=== PATIENT | female | born 1955 | race Caucasian/White ===

== ENCOUNTER 2023-01-11 11:05 | Outpatient (AMB) | payer OTHER, SELFPAY ==
--- NOTE | 2023-01-11 11:29 | A.OFFVIS_ITS ---
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: No Buck Presser: Buck Presser Present Accompanied by: Daughter Allergies shellfish derived Allergy (Mild, Verified 01/11/23 11:40) Swelling tramadol Allergy (Mild, Verified 01/11/23 11:40) Swelling Medication List - Last Reconciled 01/11/23 by Víctor Nunez MD ascorbic acid (vitamin C) (Vitamin C) 500 mg PO BID bupropion HCl 300 mg PO DAILY cetirizine 10 mg PO DAILY citalopram 20 mg PO DAILY docusate sodium 100 mg PO BID dulaglutide (Trulicity) mg subcut estradiol 0.01%(0.1mg/gram) vaginal ferrous sulfate 325 mg PO BID insulin aspart U-100 (Novolog U-100 Insulin aspart) subcut insulin pump cart,cont inf,BT (Omnipod Dash Pods (Gen 4) subcutaneous cartridge) As directed levothyroxine 88 mcg PO DAILY losartan 25 mg PO DAILY meclizine 12.5 mg PO BID metformin ER 1,000 mg PO BID pantoprazole 40 mg PO DAILY simvastatin 40 mg PO BEDTIME topiramate 50 mg PO DAILY trospium ER 60 mg PO DAILY ursodiol 0 mg PO BID HPI HPI Comments History of Present Illness Details Mid nanda was referred here for chest discomfort. She presents here with her LOGGING SPECIALIST. In the last 2 months she has had very limited functionality and with walking she has balance issues and falls down. She says she also gets dizzy. She has bilateral glove and stocking type of numbness. She has longstanding history of diabetes as well as hypertension. As per the LOGGING SPECIALIST she has a lot of weakness and had its to pull herself up in the bed. It seems like after pulling herself 1 time she started developing chest discomfort in the retrosternal and inframammary area with radiation total left arm and left side of the neck. Symptoms are worse with touching over her retrosternal area and reproducible. She also has discomfort which is accentuated when she raises her arm. The discomfort is almost present all the time. Her she also has exertional shortness of breath with limited exercise capacity. She denies any orthopnea, PND, leg edema. No prolonged palpitations or irregular heartbeat or lightheadedness or syncope. [facility] Medical History Diabetes HTN (hypertension) Surgical History Hx of eye surgery Hx of hand surgery Hx of spinal surgery Family History Father No problems noted. Mother No problems noted. Son No problems noted. Social History Patient Tobacco Use Status: Former Tobacco user Review of Systems Const Denies chills, Denies daytime sleepiness, Denies fatigue, Denies fever(s), Denies frequent falls, Denies poor appetite, Denies snoring, Denies stops breathing during sleep, Denies weakness, Denies weight gain and Denies weight loss Eyes Denies loss of vision ENT Denies dizziness and Denies hearing loss Card Denies chest pain, Denies claudication, Denies leg edema, Denies lightheadedness, Denies palpitations, Denies dyspnea, Denies dyspnea on exertion and Denies orthopnea Resp Denies cough, Denies excessive phlegm production, Denies dyspnea, Denies dyspnea on exertion, Denies snoring and Denies wheezing GI Denies abdominal pain, Denies hematochezia, Denies change in bowel habits, Denies nausea and Denies vomiting Denies urinary frequency and Denies dysuria Musc Denies arthralgias, Denies muscle weakness, Denies numbness and Denies other (frequent falls) Skin/Breast Denies nail changes and Denies rash Neuro Denies Abnormal speech present, Denies dizziness, Denies frequent falls, Denies loss of vision, Denies memory loss, Denies numbness and Denies weakness Psych Denies depression and Denies memory loss Endo Denies fatigue and Denies palpitations Rickey/Lymph Reports easy bruising and Reports other (anemia) Aller/Immun Denies wheezing Physical Exam Vital Signs: Last Vital Signs Pulse 89 01/11/23 11:37 BP 124/74 01/11/23 11:37 BMI result Body Mass Index 36.3 Const General: cooperative, comfortable, no acute distress, alert and awake Nutritional Appearance: obese Orientation/consciousness: patient oriented x3 Limitations: ambulation with cane HEENT Head: Yes normocephalic and Yes atraumatic Neck Neck: Yes trachea midline, Yes supple and Yes no JVD Resp Effort & Inspection: normal respiratory effort Auscultation: clear to auscultation bilaterally Cardio Jugular venous distension: no JVD Palpation: normal PMI Rate: regular rate Rhythm: regular rhythm Heart sounds: S1 normal heart sound present, S2 normal heart sound present, no click, no gallops, no murmurs and no rubs GI Auscultation: normal bowel sounds Skin General skin exam: no rashes or lesions noted Neuro General: patient oriented x3 and no focal motor deficits Speech: No Abnormal speech present Extrem General: Yes no clubbing, cyanosis or edema Office Procedures EKG Details: EKG shows normal sinus rhythm normal EKG [id number], Complete Assessment & Plan Assessment & Plan (1) Chest pain: Code(s): R07.9 - Chest pain, unspecified Plan: Patient with symptoms of chest pain continued chest pain at this point time of which is continuously present and atypical noncardiac in nature. This appears to be musculoskeletal chest pain. EKG with continues chest pain is within normal limits. However she does have limited exercise capacity and shortness of breath and multiple risk factors for obstructive coronary artery disease. I would suggest her to undergo myocardial perfusion imaging with vaso dilator to evaluate for obstructive coronary artery disease which will also help with pro gnostication. Otherwise continue risk factor modification. Blood pressure is well optimized. Diabetes under your care with goal hemoglobin A1c less than 7%. Will follow up in the clinic if need be. Thank you for allowing me to partake in the care Coding Level of Care Code New Pt Level 3 (34123) Diagnoses Chest pain R07.9 CPT Codes EKG - CPT: 40633-[id number], Complete ([id number])
[2023-01-11 11:37] VITALS: BP 124/74; PULSE 89; BMI 36.3
== END 2023-01-11 12:05 | disposition home or self-care (01) ==
LOC: HO.HCS 11:06
PROVIDERS: PCP Nurse Practitioner Family; Referring Provider Nurse Practitioner Family; Visit Provider Internal Medicine Cardiovascular Disease
DX: R07.9 Chest pain, unspecified (principal)
CPT/HCPCS: 93010; 99203

== ENCOUNTER → 2023-01-11 11:05 | Outpatient (BNVA) | payer OTHER, SELFPAY | PROVIDERS: PCP Nurse Practitioner Family; Referring Provider Nurse Practitioner Family; Visit Provider Internal Medicine Cardiovascular Disease | DX: R07.9 Chest pain, unspecified (principal) | CPT/HCPCS: 93005; 99202 ==